=== PATIENT | male | born 1980 | race African-American/Black ===

== ENCOUNTER 2017-04-03 22:43 | Emergency (ER) | payer OTHER ==
--- NOTE | ~2017-04-03 | CR63 ---
[facility] A Service of [facility] & [facility] RADIOLOGY TEXT RESULTS PATIENT: IZA BURTON LOCATION: SED : 76 UNIT #: [id number] AGE: [address]: Nicole Cummins MD SEX: M ORDER DR: [id number] [address] [address] [id number] MR#: [id number] Acc #: [id number] NAME: IZA BURTON : 1980 SEX: M STUDY DATE/TIME: 04/04/2017 0:14 UNIT: SED ROOM: STUDY DESCRIPTION: CR Chest 2 View Attending Physician: Nicole Cummins M.D. Ordering Physician: Nicole Cummins M.D. [facility] MED[facility]AGING REPORT This report is preliminary unless electronic signature is present. EXAM PA and lateral chest, 04/04 COMPARISON 12/02/2015 HISTORY Left-sided chest pain starting an hour ago. FINDINGS A PA and lateral view of the chest were obtained. The heart size and vascularity are normal and the lungs are clear and the bones are unremarkable. IMPRESSION No active disease. Dictated by... Jose Angel Munson M.D. THIS IS AN ELECTRONICALLY VERIFIED REPORT Jose Angel Munson M.D. at 04/04/2017 1:35 PM Palmer TD: 04/04/2017 12:43 JOB #: [id number] MEDICAL IMAGING REPORT Page 1 of 1
[~2017-04-03 22:43] MED LIST: FLEXERIL PO; TYLOX1 CAP 5/50 PO
== END 2017-04-04 01:03 | disposition home or self-care (01) ==
LOC: SED 22:43
DX: M25.512 Pain in left shoulder (principal); I10 Essential (primary) hypertension
CPT/HCPCS: 71020; 99283